=== PATIENT | male | born 2005 | race Caucasian/White ===

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

== ENCOUNTER 2024-06-04 19:04 | Emergency (ER) | payer OTHER, SELFPAY ==
--- NOTE | ~2024-06-04 | CT_ITS ---
EXAMINATION: CT FACIAL BONES WITHOUT CONTRAST CLINICAL INFORMATION: Injury. Pain. COMPARISON: None available. TECHNIQUE: Contiguous axial noncontrast CT scan images of the facial bones obtained. Sagittal and coronal reformatted images also obtained. This CT examination was performed using dose optimization techniques as appropriate, variously including the following: *Automated exposure control *Adjustment of mA and/or kV according to patient size (this includes techniques or standardized protocols for targeted exams where dose is matched to indication/reason for exam; i.e. extremities or head) *Use of iterative reconstruction technique DLP: 389 mGy-cm FINDINGS: There is frontal and ethmoid sinus mucosal thickening. Visualized maxillofacial sinuses are otherwise clear. There is a mildly displaced right nasal bone fracture. No other fracture is seen. The orbital structures are unremarkable. The soft tissues are grossly unremarkable. CT/CT facial bones wo IV con IMPRESSION: Mildly displaced right nasal bone fracture. Electronically signed by: Bradly Phoenix MD 06/05/2024 02:09 AM EDT
[2024-06-04 19:11] VITALS: BP 152/89; PULSE 90; RESP 18; TEMP 36.9; O2SAT 98; BMI 36.9
--- NOTE | 2024-06-04 19:11 | ED.HEATRA ---
HPI - Head Injury General Chief complaint: General Medical Stated complaint: possible broken nose Time Seen by Provider: 06/04/24 19:12 Source: patient Mode of arrival: ambulatory Limitations: no limitations History of Present Illness ED Provider: Sri Alvarez PA-C HPI Narrative: Patient is a 19 year old assigned male at with no reported medical history presenting to the emergency department today with nose pain. Patient states that he was playing basketball when he hit his face on the back of his friends head. Patient states that immediately his nose began to bleed and he is concerned it is broken. Patient denies any loss of conciousness, dizziness, lightheadedness, abdominal pain, nausea, vomiting, fever, chills, blurry vision, double vision, loss of vision, chest pain, difficulty breathing, shortness of breath, back pain, night sweats, pain with urination, increased urinary frequency, increased urinary urgency, blood in his urine or stool, syncope or a near syncopal episode, bowel incontinence, bladder incontinence, or any other complaints at this time. Loss of Consciousness: no Radiation: none Other Injuries: none Associated symptoms: denies other symptoms Related Data Allergies Allergy/AdvReac Type Severity Reaction Status Date / Time morphine [MORPHINE] Allergy Unknown ANAPHYLAXIS Verified 06/04/24 19:13 Review of Systems Constitutional: Constitutional: Reports no additional constitutional complaints, Denies chills, Denies fever(s) and Denies night sweats Eyes: Eyes: Reports no additional eye complaints, Denies blurry vision, Denies change in vision, Denies diplopia, Denies eye discharge, Denies loss of vision and Denies eye pain ENT: Denies dizziness, Reports epistaxis and Reports nasal trauma Cardiovascular: Cardiovascular: Reports no additional cardiovascular complaints, Denies chest pain, Denies lightheadedness, Denies Loss of Consciousness and Denies dyspnea Respiratory: Respiratory: Reports no additional respiratory complaints and Denies dyspnea Gastrointestinal: Gastrointestinal: Reports no additional gastrointestinal complaints, Denies abdominal pain, Denies melena, Denies hematochezia, Denies change in bowel habits and Denies change in stool character Genitourinary: Genitourinary: Reports no additional male genitourinary complaints, Denies hematuria, Denies oliguria, Denies difficulty urinating, Denies dysuria, Denies urinary frequency, Denies urinary hesitancy, Denies urinary incontinence and Denies urinary urgency Musculoskeletal: Musculoskeletal: Reports no additional musculoskeletal complaints, Denies numbness and Denies tingling Neurologic: Denies dizziness, Denies loss of vision, Denies numbness and Denies tingling Psychiatric: Psychiatric: Reports no additional psychiatric complaints Endocrine: Endocrine: Reports no additional endocrine complaints Hematologic/Lymphatic: Hematologic/Lymphatic: Reports no additional hematologic/lymphatic complaints Allergic/Immunologic: Allergic/Immunologic: Reports no additional allergic/immunologic complaints PMFSH Past Medical History Attestation statement: The following information was validated with the patient. Source: old records reviewed and nursing notes reviewed Physical Exam Vital Signs: Vital Signs: Last Vital Signs Temp 98.5 F 06/05/24 01:01 Pulse 83 06/05/24 01:01 Resp 20 06/05/24 01:01 BP 149/86 H 06/05/24 01:01 Pulse Ox 98 06/05/24 01:01 O2 Del Method Room Air 06/05/24 01:01 BMI result Body Mass Index 36.9 Const: General: cooperative, no acute distress, alert and awake Nutritional Appearance: well nourished Orientation/consciousness: patient oriented x3 Limitations: no limitations HEENT: Head: Yes normal to inspection and Yes atraumatic Ears: hearing grossly normal bilaterally and external ears normal General nose exam: Normal external nose present, no nasal discharge noted and no epistaxis Face and sinus: Yes normal facial exam, No abrasion and No laceration Mouth: Normal oral and palatal mucosa present, no drooling and no muffled voice Eyes: General: appearance normal, both eyes and all related structures Periorbital: periorbital findings normal Eyelids: Yes eyelids normal Conjunctivae: conjunctivae normal Pupils: Equal, round and reactive pupils present EOM: EOMs intact bilaterally Neck: Neck: Yes normal visual inspection, Yes full ROM and Yes no lymphadenopathy Chest: Chest palpation & inspection: normal inspection of the chest Resp: Effort & Inspection: normal respiratory effort and able to speak in complete sentences GI: Inspection: Yes normal to inspection Neuro: General: patient oriented x3 and moves all extremities Cranial nerves: Yes Equal, round and reactive pupils present Cognition (Neuro): normal cognition Extrem: General: Yes normal to inspection, Yes full ROM and Yes capillary refill normal Psych: Appearance: grossly normal Mental Status: mental status grossly normal Affect: normal affect Attitude: cooperative Thought process: Normal thought process present Thought content: Normal thought content present Insight: Good insight present (Psych) Course Course Course Narrative: This is a Rapid Medical Exam performed in triage by Kerri Avelar PA-C. Full HPI, ROS and PE to be performed by primary ED provider. 19-year-old male with no significant past medical history presenting to the ED complaining of suspected broken nose with epistaxis [employer] s/p being head-butted while playing basketball. Denies taking anticoagulation or LOC PE: + anterior epistaxis appreciated. + mild nasal deformity. No focal deficits. Serbian head CT rule negative Plan: Nasal clamp applied Medical Decision Making Medical Decision Making MDM Narrative: Patient is a 19 year old assigned male at with no reported medical history presenting to the emergency department today with nose pain. Patient's physical exam was unremarkable, no septal hematoma present. Patient's CT facial bones showed an acute nasal fracture. I explained my physical exam findings as well as all test results to the patient]. I answered all questions asked by the patient. I stressed the importance of the patient taking his medication as directed (either prescribed or as the over the counter packaging recommends). I stressed the importance of the patient following up with his primary care provider and an ENT specialist. I stressed the importance of the patient returning to the emergency department immediately if his symptoms were to worsen or if he were to develop any dizziness, shortness of breath, difficulty breathing, chest pain, blurry vision, loss of vision, nausea, vomiting, abdominal pain, fever, chills, back pain, or any other complaints. Patient verbalized agreement and understanding with this treatment plan and discharge. Differential Diagnosis Differential Diagnoses: The differential diagnosis associated with the presentation includes Nasal fracture Nasal contusion Admission/Observation Consideration of admission/observation: Escalation of care including admission/observation considered Patient would have been admitted to the hospital had his work up had any findings where hospital admission was appropriate and his clinical presentation warranted hospital admission. Independent Interpretation I performed an independent interpretation of an: CT Scan Interpretation: My interpretation is in agreement with the radiologist's impression of this imaging study. EXAMINATION: CT FACIAL BONES WITHOUT CONTRAST CLINICAL INFORMATION: Injury. Pain. COMPARISON: None available. TECHNIQUE: Contiguous axial noncontrast CT scan images of the facial bones obtained. Sagittal and coronal reformatted images also obtained. This CT examination was performed using dose optimization techniques as appropriate, variously including the following: *Automated exposure control *Adjustment of mA and/or kV according to patient size (this includes techniques or standardized protocols for targeted exams where dose is matched to indication/reason for exam; i.e. extremities or head) *Use of iterative reconstruction technique DLP: 389 mGy-cm FINDINGS: There is frontal and ethmoid sinus mucosal thickening. Visualized maxillofacial sinuses are otherwise clear. There is a mildly displaced right nasal bone fracture. No other fracture is seen. The orbital structures are unremarkable. The soft tissues are grossly unremarkable. CT/CT facial bones wo IV con IMPRESSION: Mildly displaced right nasal bone fracture. Electronically signed by: Bradly Phoenix MD 06/05/2024 02:09 AM EDT RP Dictated By: Bradly Phoenix MD Signed By: Electronically signed by Bradly Phoenix MD 06/05/24 0209 Radiology Impression Discussion of test interpretation with radiology: I have reviewed the radiologist's reading. Discharge Plan Discharge Clinical Impression: Closed fracture nasal bone Patient Disposition: Home, Self-Care Instructions: Nasal Fracture (ED) Additional Instructions: Follow up with your primary care provider and an ENT. Please avoid blowing your nose and as best as possible - sneezing. Return to the emergency department immediately if your symptoms worsen or if you develop any dizziness, shortness of breath, difficulty breathing, chest pain, blurry vision, loss of vision, nausea, vomiting, abdominal pain, fever, chills, back pain, or any other complaints. Referrals: [facility] [Provider Group] (Call to establish and follow up with an ENT specialist. ) [facility] [place] [facility] [place] (Call to establish and follow up with a primary care provider. If you already have a primary care provider, please follow up with them.) [facility] [place] [facility] [Provider Group] (Call to establish and follow up with a primary care provider. If you already have a primary care provider, please follow up with them.) [facility] [place] [facility] [Provider Group] (Call to establish and follow up with a primary care provider. If you already have a primary care provider, please follow up with them.) Interventions: ED Discharge Assessment Last Done: 06/05/24 01:01 Discharge Date/Time: 06/05/24 01:02 Print Language: Icelandic
[2024-06-05 01:01] VITALS: BP 149/86; PULSE 83; RESP 20; TEMP 36.9; O2SAT 98
== END 2024-06-05 01:02 | disposition home or self-care (01) ==
PROVIDERS: Emergency Provider Emergency Medicine Emergency Medical Services
DX: S02.2XXA Fracture of nasal bones, initial encounter for closed fracture (principal); R04.0 Epistaxis; R51.9 Headache, unspecified; X58.XXXA Exposure to other specified factors, initial encounter; Y93.67 Activity, basketball; Y92.310 Basketball court as the place of occurrence of the external cause; Y99.8 Other external cause status
CPT/HCPCS: 70486; 99282; 99284

== ENCOUNTER 2025-03-08 12:27 | Outpatient (AMB) | payer OTHER, SELFPAY ==
--- NOTE | 2025-03-08 12:30 | A.OFFPC_ITS ---
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 Required: No Accompanied by: Self / Same As Patient Allergies morphine [MORPHINE] Allergy (Unknown, Verified 03/08/25 12:34) ANAPHYLAXIS Medication List - Last Reconciled 03/08/25 by JUAN MIGUEL Oh No Known Home Meds Tobacco use date assessed: 03/08/25 Dental Screening Dental Screen Date: 03/08/25 Did you have a dental visit in the last 12 months?: No Did you have a dental problem in the last 6 months where you did not have access to dental care?: No Was dental information given to patient?: Yes HPI RECEPTION MANAGER ESTABLISH CARE HPI Details History of Present Illness The patient is a 19-year-old male presenting with morbid obesity during a new patient visit. Despite his weight, he maintains an active lifestyle. He denies the presence of common acute symptoms such as chest pain, shortness of breath, or gastrointestinal complaints. He also denies any psychiatric concerns. A discussion about dietary modifications took place to support weight management. During the visit, acanthosis nigricans was observed at the neck, potentially linked to his obesity. Health Maintenance - Discussion about dietary modifications and referral to a career services officer/massage therapy instructor. - Examination of skin condition related to obesity. Social History - Reports being fairly active. Review of Systems - Cardiovascular: Denies chest pain. - Respiratory: Denies shortness of breat h. - Gastrointestinal: Denies abdominal monty n, blood in stool, constipation, diarrhea. - Psychiatric: Denies suicidal ideation. Physical Exam General: Cooperative, healthy appearing, comfortable, no acute distress and well developed, morbidly obese Orientation: Patient oriented x3 Limitations: No limitations Head: Normal to inspection Ears: Hearing grossly normal bilaterally Nose: Normal external nose present Face and sinus: Normal facial exam Eyes: Appearance normal, both eyes and all related structures Neck: Normal visual inspection and Yes full ROM. Acanthosis nigricans noted Respiratory: Normal respiratory effort and able to speak in complete sentences. Clear to auscultation bilaterally Cardiovascular: Regular rate and rhythm. Normal S1 and S2 GI: Normal to inspection. Soft to palpation and nontender Skin: No rashes or lesions noted Neuro: Patient oriented x3 Extremities: Normal to inspection Results Plan Education on dietary changes and physical activity was provided to address morbid obesity, with a referral to a career services officer/massage therapy instructor. The observation of acanthosis nigricans will be monitored, considering its potential linkage to insulin resistance due to obesity. Additional follow-up will involve regular monitoring of weight and associated symptoms. Discussion Notes I discussed the importance of dietary modifications and physical activity with the patient to help manage morbid obesity. The referral to a career services officer/nutrit ionist was explained as a step towards professional nutritional guidance. I also addressed the finding of acanthosis nigricans and its possible association with his obesity, ensuring the patient understood the significance of this skin change. No immediate risks were identified, but regular monitoring was recommended. Patient Instructions - Follow up with the career services officer/nutrition ist as discussed. - Maintain an active lifestyle to assist with weight management. - Monitor any changes in skin, particula rly at the neck, and report any concerns. - Return for regular follow-up visits fo r continued monitoring of weight and associated health conditions. [facility] Surgical History No pertinent past surgical history Family History Mother Diabetes Social History Housing: House Housing Other:: [facility] Alcohol intake: never Patient Tobacco Use Status: Never used Tobacco e-Cigarette/Vaping Use: Never Used Second Hand Smoke Exposure: No service: No Current occupational status: employed Current occupation: [employer] Current occupational exposures/hazards: No Cognitive needs: No Hearing needs: No Vision needs: Yes Questionnaire PHQ-9 Over the last 2 weeks, how often have you been bothered by any of the following problems? 1. Little interest or pleasure in doing things: not at all 2. Feeling down, depressed, or hopeless: not at all 3. Trouble falling or staying asleep, or sleeping too much: not at all 4. Feeling tired or having little energy: several days 5. Poor appetite or overeating: not at all 6. Feeling bad about yourself - or that you are a failure or have let yourself or your family down: several days 7. Trouble concentrating on things, such as reading the newspaper or watching television: not at all 8. Moving or speaking so slowly that other people could have noticed. Or the opposite - being so fidgety or restless that you have been moving around a lot more than usual: not at all 9. Thoughts that you would be better off or of hurting yourself in some way: not at all Total score: 2 Depression Screening Interpretation: Negative Depression Screening Done: Yes 56700 - PHQ-9 Billing: Yes Source: Developed by Drs. Robert Sam, Leanne Dillard, David Martell and colleagues, with an educational ryan from [employer]. Thrive Questionnaire Date Thrive assessed: 03/08/25 I am a: Patient What is your living situation today?: I have a steady place to live Within the past 12 months, did the food you bought not last and you didn't have the money to get more?: Never true Within the past 12 months, did you worry whether your food would run out before you got money to buy more?: Never true Do you have trouble paying for medicines?: No Do you have trouble getting transportation to medical appointments?: No Do you have trouble paying your heating and electricity bill?: No Do you have trouble taking care of your child, family member or friend?: No Do you have trouble with day-to-day activities such as bathing, preparing meals, shopping, managing finances, etc.?: No Are you currently unemployed and looking for a job?: No Are you interested in more education?: Yes Please select the resources that you would like help with: Education Currently or been in a relationship where the following occur: No concerns reported THRIVE Score: 0 AUDIT C Alcohol Use Questionnaire (AUDIT-C) 1. How often do you have a drink containing alcohol?: Never 3. How often do you have six or more drinks on one occasion?: Never Total Score: 0 Score Reviewed/Action Taken: Yes RONALDO-7 AMB Questionnaire RONALDO-7 Date RONALDO - 7 assessed: 03/08/25 Feeling nervous, anxious, or on edge: 0 = Not at all Not being able to stop or control worryin = More than half the days Worrying too much about different things: 1 = Several days Trouble relaxin = Not at all Being so restless that it is hard to sit still: 0 = Not at all Becoming easily annoyed or irritable: 2 = More than half the days Feeling afraid as if something awful might happen: 1 = Several days Total RONALDO-7 score (0-4 normal; 5-9 mild; 10-14 moderate; 15-21 severe): 6 Source: Developed by Drs. Robert Sam, Leanne Dillard, David Martell and colleagues, with an educational ryan from [employer]. RONALDO-7 Assessment Billing RONALDO-7 Assessment Tool: RONLADO-7 Assessment 29736 Physical exam (Primary Care) Vital Signs: Last Vital Signs Temp 97.8 F 03/08/25 12:31 Pulse 82 03/08/25 12:31 BP 132/80 03/08/25 12:31 Pulse Ox 98 03/08/25 12:31 Oxygen Delivery Method Room Air 03/08/25 12:31 BMI result Body Mass Index 40.2 Tobacco/Smoking Status: Tobacco use Status Tobacco use date assessed 03/08/25 03/08/25 12:32 Patient Tobacco Use Status Never used Tobacco 03/08/25 12:37 e-Cigarette/Vaping Use Never Used 03/08/25 12:37 PHQ-9: PHQ-9 Score PHQ-9: Total score 2 03/08/25 12:38 Depression Screening Interpretation: Negative Thrive Assessment: Date of Thrive Assessment Date Thrive assessed 03/08/25 03/08/25 12:32 Currently or been in a relationship where the following occur: No concerns reported Coding Level of Care Code New Pt Prev Care 18-39yr(35387 Diagnoses Physical exam Z00.00 Morbid obesity E66.01 Additional Codes RONALDO-7 Assessment Billing - RONALDO-7 Assessment Tool: RONALDO-7 Assessment 24717 ([id number]) PHQ-9 - 94473 - PHQ-9 Billing: Yes ([id number]) Assessment & Plan Assessment & Plan (1) Physical exam: Code(s): Z00.00 - Encounter for general adult medical examination without abnormal findings Category: Medical (2) Morbid obesity: Code(s): E66.01 - Morbid (severe) obesity due to excess calories Category: Medical Plan . Orders: Orders Comprehensive [place]. Panel Fast Today Z00.00 - Encounter for general adult medical examination without abnormal findings TSH reflex Free T4 Today Z00.00 - Encounter for general adult medical examination without abnormal findings UA CC w/rflx Micro + Cult Today Z00.00 - Encounter for general adult medical examination without abnormal findings Complete Blood Count Auto Diff Today Z00.00 - Encounter for general adult medical examination without abnormal findings Lipid Panel Today Z00.00 - Encounter for general adult medical examination without abnormal findings Referrals Mysql Database Administrator Nutrition Referral E66.01 - Morbid (severe) obesity due to excess calories
[2025-03-08 12:31] VITALS: BP 132/80; PULSE 82; TEMP 36.6; O2SAT 98; BMI 40.2
--- OUTSIDE RECORDS SUMMARY | 2025-03-08 14:32 | XMS_ITS | Encounter Summary ---
Author Organization [facility] Address [address] [place] [phone] Phone Care Team Providers Care Micro Computer Specialist Name Role Phone Unavailable Primary Care Provider Unavailabl e Encounter Details Date Type Department Care Team (Late st Contact Info) Description 11/24/2013 Documentation [facility] [address] [place] [address] Family Medicine, Physician [address] [place] [address] Social History Tobacco Use Types Packs/Day Years Used Date Smoking Tobacco: Never Assessed Sex and Gender Information Value Date Recorded Sex Assigned at Not on file Legal Sex Male 4:36 PM EDT Gender Identity Not on file Sexual Orientation Not on file documented as of this encounter Plan of Treatment Not on file documented as of this encounter Visit Diagnoses Not on filedocumented in this encounter
== END 2025-03-08 13:14 | disposition home or self-care (01) ==
LOC: HO.HMCC 12:28
PROVIDERS: Visit Provider Nurse Practitioner Family
DX: Z00.00 Encounter for general adult medical examination without abnormal findings (principal); E66.01 Morbid (severe) obesity due to excess calories; Z68.41 Body mass index [BMI] 40.0-44.9, adult

== ENCOUNTER → 2025-03-08 12:27 | Outpatient (BNVA) | payer OTHER, SELFPAY | PROVIDERS: Visit Provider Nurse Practitioner Family | DX: Z00.00 Encounter for general adult medical examination without abnormal findings (principal); E66.01 Morbid (severe) obesity due to excess calories; Z68.41 Body mass index [BMI] 40.0-44.9, adult | CPT/HCPCS: 96127; 99385 ==

== ENCOUNTER 2025-04-19 12:36 | Outpatient (AMB) | payer OTHER, SELFPAY ==
--- OUTSIDE RECORDS SUMMARY | 2025-04-19 13:03 | XMS_ITS | Encounter Summary ---
Author Organization [facility] Address [address] [place] [phone] Phone Care Team Providers Care Concreting Supervisor Name Role Phone Unavailable Primary Care Provider Unavailabl e Encounter Details Date Type Department Care Team (Late st Contact Info) Description 11/24/2013 Documentation [facility] [address] [place] [address] Family Medicine, Physician [address] [place] [address] Social History Tobacco Use Types Packs/Day Years [...]
--- OUTSIDE RECORDS SUMMARY | 2025-04-19 13:03 | XMS_ITS | Data Portability ---
Author Organization [place] [facility], Allergy Address [address] [address] Assessment Encounter Date Assessment Date Assessment LastModified by Organization Details LastModified Time 06/08/2024 06/08/2024 Minimally depressed nasal bone fracture. Discussed option of observation versus closed reduction. Wished to observe at present time At the present time there is minimal deformity. He would like to hold off on any intervention. He understands he can see plastic surgery in the future if he has any concerns about how the nose heals brenda Not available 06/08/2024 11:54:19 Plan of Treatment Reminders Order Date Submit Date Provider Last Modified By Organization Details Last Modified Time Details Appointments None record ed. Lab None record ed. Referral None record ed. Procedures None record ed. Surgeries None record ed. Imaging None record ed. Medication Orders None record ed. Patient TargetsNo targets recorded. Patient InstructionsNo instructions recorded. Reason for Referral None Reported. Results Created Date Observation Date Name Description Value Unit Range Abnormal Flag Note LastModifiedBy Organization Detail LastModifiedTime 06/08/20 24 06/05/2024 CT, maxil lofac ial, w/o contr ast No observ ation record ed. [email or web address] Not Available 02/2024 14:22:16 06/08/20 24 06/05/2024 CT, maxil lofac ial, w/o contr ast No observ ation record ed. [email or web address] Not Available 02/2024 14:26:14 Result Notes None recorded. Problems Name Problem SNOMED Code Status Onset Date Resolution Date Notes Provider Name and Address Organization Details Recorded Time Closed fracture of nasal bones 16658365 Active 024 PEARL MONTESINOS MD [address] [facility],[place] [address], [place], [address] , [facility] 11:52:18 Problem Notes None recorded. Medical Equipment None Reported. Vitals Date Recorded Body height Body mass index (BMI) Body mass index (BMI) [Percentile] Per age and sex Body weight Provider Name and Address Organization Details Last Updated DateTime 06/08/2024 167.64 cm 40.4 kg/m2 99 % 103365.0 9 g Awilda Moran [place] [facility] 06/08/2024 11:35:37 Social History None recorded. Functional Status None recorded. Mental Status None recorded. Family History Nothing Reported. Medical History No medical history recorded. Past Encounters Encounter ID Performer Location Encounter Start Date Encounter Closed Date Diagnosis/Indication Diagnosis SNOMED-CT Code Diagnosis ICD10 Code Diagnosis Note [id number] PEARL MONTESINOS MD [facility] [address] [address] 06/08/2024 11:16:58 06/08/2024 11:58:31 Closed fracture of nasal bones 27273006 S02.2XXA Health Concerns Section Related Observation LastModified by Organization Detai ls LastModified Time None Recorded Concern Status LastModified by Organization Details LastModified Time None Recorded Advance Directives Directive None Recorded Payers Insurance Date Sequence Insurance Name Policy Number Policy Raymond Covered Member ID Raymond Member ID Guarantor Name 06/09/2024 1 [place] [facility] Jos Cantu Jr [id number] Terry Beckham 06/09/2024 1 [facility]MEDICAID HMO) RAHEEM Cantu Jr [id number] Terry Beckham Notes Date Note Type Note Provider Name and Address Organization Details Recorded Time 06/08/2024 text/html Patient struck i n the nose 4 days ago while playing basketball. He denies any nasal pain or significant deformity. He did have a CT at [facility] which showed a mildly displaced right nasal bone fracture. He denies any breathing difficulties. Otherwise healthy PEARL GUZMAN MD [address] [facility],[place] [address], [place], [address], [place] [facility] 06/08/2024 11:54:34
[2025-04-19 13:06] VITALS: BMI 39.9
--- NOTE | 2025-04-19 13:06 | A.OFFVIS_ITS ---
VS Expanded 04/19/25 13:06 04/19/25 13:28 Height 5 ft 9 in 5 ft 9 in Weight 269 lb 15.296 oz 270 lb BMI 39.9 39.9 Intake Visit Reasons: Morbid (severe) obesity due to excess calories Allergies morphine (MORPHINE) Allergy (Unknown, Verified 03/08/25 12:34) ANAPHYLAXIS Nutrition Presentation Details: Pt presents for MNT for obesity Typical meal intake 8- egg hashbrown perez or toast with butter, orange juice or steve D snack : 1 pm : doritos, juice or soda or sprite 6 pm : rice/beans/chicken or (frozen red barren pizza or Reji or BB burger /fries pizza or pie chef boyardee, juice/soda physical activity: currently sedentary eoth/smoking--- ZIZ-Hpnexew-Sf.Jeor Equation Height: 5 ft 9 in Weight: 270 lb Resting Metabolic Rate: 2220.53 Calculated Activity Level: Sedentary Calories Needed to Maintain Weight: 2664.64 Diagnosis Nutrition problem #1: excessive energy intake As related to (etiology) #1: diagnosis As evidenced by (sign/symptom) #1: high BMI (39.9 (04/27)) and knowledge deficit of diet Monitoring/Goals Nutrition problem monitoring: weight and oral fluids (to choose low sugar beverage options ) Nutrition goal/outcome: wt loss 5lbs in 2 months Outcome progress: verbalized understanding Learning/Education Readiness to learn: good Stages of change: preparation PFSH Surgical History No pertinent past surgical history Family History Mother Diabetes Social History Housing: House Housing Other:: townhouse Alcohol intake: never Patient Tobacco Use Status: Never used Tobacco e-Cigarette/Vaping Use: Never Used Second Hand Smoke Exposure: No service: No Current occupational status: employed Current occupation: [employer] Current occupational exposures/hazards: No Cognitive needs: No Hearing needs: No Vision needs: Yes Assessment & Plan Assessment & Plan (1) Morbid obesity: Code(s): E66.01 - Morbid (severe) obesity due to excess calories Category: Medical Plan: Wt: 123 Kg ( 04/27 ) Est kcal needs as per MSJ: 2700 (40% carb, 30% protein/fat) Est fluid needs as per 25-30 ml/d: 3700 Est prot per day as per 1 g/kg bw: 123 Recommend fiber intake : 8-10 g per day and gradually increase to 25-28 g per day for women and 35-38 g for men or as tolerated Recommend sodium intake per day : less than 1500 mg less than 2000 mg Educated patient on: ( R = reviewed V = verbalizes understanding N/R = needs review N/A = not applicable * Food sources of carbohydrate, adequate serving sizes and its role in various health conditions: R V N/R * Differences between complex carbohydrates a simple carbohydrates, role of fiber in diet: R * Lean protein sources of foods: R * Differences between types of fats and role in diet (mono on saturated fat fatty acids, saturated fatty acids, trans fats): R V N/R * Food sources of sodium in salt and healthy modifications for heart health in kidney health: R V R/V * Vitamins and minerals: R V N/R * Healthy plate method concept: R * Physical activity: Benefits a precaution: R V N/R * Dietary prevention of Hyperglycemia: R Patient Instructions: Have water, low sugar beverages with meals and snack, read food labels and choose those with 5 g of carb or less Follow healthy plate method at dinner Have a protein shake as your bedtime snack Coding Level of Care Code Nutr Indiv Intake (18773) Diagnoses Morbid obesity E66.01 Time Spent (min) 40
[2025-04-19 13:28] VITALS: BMI 39.9
== END 2025-04-19 13:52 | disposition home or self-care (01) ==
LOC: HO.ENCR 12:37
PROVIDERS: Visit Provider Dietitian, Registered
DX: E66.01 Morbid (severe) obesity due to excess calories (principal)

== ENCOUNTER → 2025-04-19 12:36 | Outpatient (BNVA) | payer OTHER, SELFPAY | PROVIDERS: Visit Provider Dietitian, Registered | DX: Z71.3 Dietary counseling and surveillance (principal); E66.01 Morbid (severe) obesity due to excess calories | CPT/HCPCS: 97802 ==